=== PATIENT | male | born 1995 | race African-American/Black ===

== ENCOUNTER 2019-11-22 15:49 | Emergency (ER) | payer SELFPAY ==
[2019-11-22 16:13] VITALS: Wt 75.0 kg
[2019-11-22] MEDS ORDERED: PENICILLIN V P500 MG PO (18:03)
[2019-11-22 18:27] VITALS: BP 133/86
== END 2019-11-22 18:28 | disposition home or self-care (01) ==
LOC: D.ER 15:49
DX: K08.89 Other specified disorders of teeth and supporting structures (principal)